=== PATIENT | female | born 1980 | race Caucasian/White ===

== ENCOUNTER 2018-04-10 21:35 | Emergency (ER) | payer MEDICAID ==
[2018-04-10] MEDS ORDERED: solu-MEDROL 125 MG IV ONE (21:53)
[2018-04-10] MEDS ORDERED: EPINEPHRINE 1MG/ML AMP IM ONE (21:53)
[2018-04-10] MEDS ORDERED: BENADRYL 50 MG/ML IV ONE (21:53)
[2018-04-10] MEDS ORDERED: BENADRYL 50 MG/ML ONE (21:58)
[2018-04-10] MEDS ORDERED: EPINEPHRINE 1MG/ML AMP ONE (21:58)
[2018-04-10] MEDS ORDERED: solu-MEDROL 125 MG ONE (21:58)
--- NOTE | 2018-04-10 21:58 | ERPHSYRPT ---
- History of Present Illness Time Seen by Provider: 04/10/18 21:54 Source: patient Exam Limitations: no limitations Patient Subjective Stated Complaint: Facial swelling Triage Nursing Assessment: Patient ambulated back to ED and transferred self to bed. Patient A+O X 3. Patient complains of facial swelling. Jose eyes noted to be swollen and left side of face. Face is slightly red. Patient states facial swelling started around 1900. Patient states NKA so unsure cause. Lungs noted to be clear a/p jose. Physician History: 37-year-old white female arrives with complaint of facial swelling swelling on the left side of her upper lip, I'll shortness of breath symptoms since 7:00. Patient states she is allergic to cats and came into contact with a cat around 7 :00. Past medical history patient denies. Past surgical history is negative. Last menstrual period last week. Social history patient denies tobacco alcohol or illicit drug use. Timing/Duration: today (7:00 this evening) Severity: moderate Modifying Factors: Improves With: other (came in contact with a cat). Worsens With: eating, immobilization, medication, movement, rest, acetaminophen, ibuprofen, nothing Associated Symptoms: shortness of breath, other (Swelling of face and lips), No nausea, No vomiting, No abdominal pain, No heartburn, No diaphoresis, No cough, No chills, No chest pain, No fever, No headaches, No loss of appetite, No rash, No syncope, No seizure, No weakness Allergies/Adverse Reactions: No Known Drug Allergies Allergy (Unverified 04/10/18 21:41) Home Medications: No Reportable Medications [No Reported Medications] 04/10/18 [History] Hx Tetanus, Diphtheria Vaccination/Date Given: No Hx Influenza Vaccination/Date Given: No Hx Pneumococcal Vaccination/Date Given: No Immunizations Up to Date: Yes - Review of Systems Constitutional: No Fever, No Chills Eyes: Other (Edema upper eyelids), No Discharge, No Eye Pain, No Eye Redness, No Itchy, No Photophobia, No Tearing, No Vision Changes, No Double Vision Ears, Nose, & Throat: Mouth Swelling (swelling left upper lip), No Ear Pain, No Ear Discharge, No Hearing Changes, No Tinnitus, No Nose Pain, No Nose Congestion , No Nose Discharge, No Sinus Drainage, No Epistaxis, No Mouth Pain, No Loose Teeth, No Throat Pain, No Throat Swelling, No Hoarse, No Painful Swallowing, No Snoring, No Stridor Respiratory: Dyspnea, No Cough, No Cyanosis, No Dyspnea on Exertion (HUGHES), No Stridor, No Wheezing Cardiac: No Chest Pain, No Edema, No Syncope Abdominal/Gastrointestinal: No Abdominal Pain, No Nausea, No Vomiting, No Diarrhea Genitourinary Symptoms: No Dysuria Musculoskeletal: No Back Pain, No Neck Pain Skin: No Rash Neurological: No Dizziness, No Focal Weakness, No Sensory Changes Psychological: No Symptoms Endocrine: No Symptoms All Other Systems: Reviewed and Negative - Past Medical History Pertinent Past Medical History: Yes Neurological History: No Pertinent History ENT History: No Pertinent History Cardiac History: No Pertinent History Respiratory History: Asthma Endocrine Medical History: No Pertinent History Musculoskeletal History: No Pertinent History GI Medical History: No Pertinent History History: No Pertinent History Psycho-Social History: No Pertinent History Female Reproductive Disorders: No Pertinent History - Past Surgical History Past Surgical History: No Neuro Surgical History: No Pertinent History Cardiac: No Pertinent History Respiratory: No Pertinent History Gastrointestinal: No Pertinent History Genitourinary: No Pertinent History Musculoskeletal: No Pertinent History Female Surgical History: No Pertinent History - Social History Smoking Status: Never smoker Exposure to second hand smoke: No Drug Use: none Patient Lives Alone: No - Female History Hx Last Menstrual Period: 1 week ago Hx Now: No - Nursing Vital Signs Nursing Vital Signs: Initial Vital Signs Temperature 97.5 F 04/10/18 21:41 Pulse Rate 67 04/10/18 21:41 Respiratory Rate 18 04/10/18 21:41 Blood Pressure 104/72 04/10/18 21:41 O2 Sat by Pulse Oximetry 97 04/10/18 21:41 Pain Scale Pain Intensity 0 - Physical Exam General Appearance: no apparent distress, alert Eye Exam: other (edema bilateral upper eye lids) Ears, Nose, Throat Exam: TMs normal, pharynx normal, moist mucous membranes, other (Airway clear, no edema to tongue, edema to left upper lip), No TM abnormal (R), No TM abnormal (L), No pharyngeal erythema, No tonsillar exudate Neck Exam: normal inspection, non-tender, supple, full range of motion Respiratory Exam: normal breath sounds, lungs clear, No respiratory distress Cardiovascular Exam: regular rate/rhythm, normal heart sounds, normal peripheral pulses, capillary refill <2 sec Gastrointestinal/Abdomen Exam: soft, normal bowel sounds, No tenderness, No mass Back Exam: normal inspection, normal range of motion, No CVA tenderness, No vertebral tenderness Extremity Exam: normal inspection, normal range of motion, pelvis stable Neurologic Exam: alert, oriented x 3, cooperative, mower sharpener II-XII nml as tested, normal mood/affect, nml cerebellar function, nml station & gait, sensation nml, No motor deficits Skin Exam: normal color, warm, dry, No rash SpO2 Interpretation: normal (97%) SpO2: 97 - Course Nursing assessment & vital signs reviewed: Yes EKG Interpreted by Me: RATE (63 bpm), Sinus Rhythm, Left Brandon Deviation, LAFB, Other (EKG: Sinus rhythm, 63 bpm, left axis deviation, left anterior fascicular block. No acute ST or T wave changes n was normaloted.) Ordered Tests: Active Orders 24 hr Category Date Time Status EKG-ER Only STAT Care 04/10/18 21:53 Active IV Insertion STAT Care 04/10/18 21:53 Active Medication Summary Discontinued Medications Generic Name Dose Route Start Last Admin Trade Name Neftalyq PRN Reason Stop Dose Admin Diphenhydramine HCl 25 mg 04/10/18 21:53 04/10/18 22:02 Benadryl 50 Mg/Ml IV 04/10/18 21:54 25 mg STAT ONE Administration Diphenhydramine HCl Confirm 04/10/18 21:58 Benadryl 50 Mg/Ml Administered 04/10/18 21:59 Dose 50 mg .ROUTE .STK-MED ONE Epinephrine HCl 0.3 mg 04/10/18 21:53 04/10/18 22:01 Epinephrine 1mg/Ml Amp IM 04/10/18 21:54 0.3 mg STAT ONE Administration Epinephrine HCl Confirm 04/10/18 21:58 Epinephrine 1mg/Ml Amp Administered 04/10/18 21:59 Dose 1 mg .ROUTE .STK-MED ONE Methylprednisolone Sodium Succinate 125 mg 04/10/18 21:53 04/10/18 22:01 Solu-Medrol 125 Mg IV 04/10/18 21:54 125 mg STAT ONE Administration Methylprednisolone Sodium Succinate Confirm 04/10/18 21:58 Solu-Medrol 125 Mg Administered 04/10/18 21:59 Dose 125 mg .ROUTE .STK-MED ONE - Progress Progress: improved Progress Note: 04/10/18 22:51 Patient feeling better after IV Benadryl, Solu-Medrol, and IM epinephrine. Will discharge patient will provide prednisone taper. Patient to continue Benadryl 50 mg orally every 6 hours for 2-3 days. . - Departure Time of Disposition: 22:52 Departure Disposition: Home Clinical Impression: Allergic reaction Qualifiers: Encounter type: initial encounter Qualified Code(s): T78.40XA - Allergy, unspecified, initial encounter Condition: Fair Critical Care Time: No Referrals: DOCTOR,NO FAMILY [Primary Care Provider] - Additional Instructions: Return home. Plenty of fluids. Benadryl 50 mg orally every 6 hours for 2-3 days. Return for any problems. Return for acute distress or for severe symptoms. Avoid cats. prednisone as directed.
[2018-04-10 23:18] VITALS: BP 99/60; PULSE 77; O2SAT 98
== END 2018-04-10 23:13 | disposition home or self-care (01) ==
LOC: ED 21:35
DX: T78.40XA Allergy, unspecified, initial encounter (principal); R06.02 Shortness of breath; R22.0 Localized swelling, mass and lump, head
CPT/HCPCS: 36000; 93005; 96372; 96374; 96375; 99284; J0171; J1200; J2930